=== PATIENT | male | born 1955 | race Caucasian/White ===

== ENCOUNTER 2017-02-20 13:45 | Emergency (ER) | payer OTHER ==
[~2017-02-20 13:45] MED LIST: ALLO100T PO; AMLO5TAB22 PO; ATEN-100 PO; ATOR40TA49 PO; DIOV320T PO; DORZ1SOL2 EACH EYE; FURO1TAB93 PO; LATA.005%O EACH EYE; OMEP20TA39 PO
[2017-02-20 13:49] VITALS: BP 173/89; PULSE 68; RESP 14; TEMP 98.4; O2SAT 95
--- NOTE | 2017-02-20 15:01 | RADRPT ---
EXAM DATE/TIME: 02/20/2017 14:33 [place] COMPARISON: CHEST PA & LAT, July 13, 2014, 9:56. INDICATIONS : Lower extremity edema, short of breath, denies chest pain MEDICAL HISTORY : lower extremity edema since August 2016 SURGICAL HISTORY : None. ENCOUNTER: Initial ACUITY: 4 - 6 months PAIN SCORE: 0/10 LOCATION: Bilateral chest FINDINGS: Portable AP view of the chest demonstrates a normal-sized cardiac silhouette. No effusion, consolidat ion, or pneumothorax is visualized. The bones and soft tissues demonstrate no acute abnormality. Ther e is mild atelectasis at the lung bases. CONCLUSION: No acute cardiopulmonary abnormality is identified. Nnamdi Ontiveros MD on February 20, 2017 at 14:59 Board Certified Radiologist. This report was verified electronically.
[2017-02-20 15:22] LABS: INTERNATIONAL NORMALIZED RATIO 0.9 RATIO; PROTHROMBIN TIME - PATIENT 10.4 SEC (9.8-11.6)
[2017-02-20 15:29] LABS: ANION GAP 7 MEQ/L (5-15); BICARBONATE 24.8 MEQ/L (21.0-32.0); BLOOD UREA NITROGEN 22 MG/DL (7-18); CHLORIDE 110 MEQ/L (98-107); GLOMERULAR FILTRATION RATE 53 ML/MIN (>89); MAGNESIUM 1.6 MG/DL (1.5-2.5); POTASSIUM 3.5 MEQ/L (3.5-5.1); SODIUM (NA) 142 MEQ/L (136-145)
[2017-02-20 15:36] LABS: CREATINE KINASE 88 U/L (39-308)
[2017-02-20 17:21] VITALS: BP 168/93; PULSE 67; RESP 16; O2SAT 96
[2017-02-20] MEDS ORDERED: FUROSEMIDE 40 MG/4 ML VIAL IV PUSH ONE (17:30)
[2017-02-20] MEDS ORDERED: POTASSIUM CHLORIDE 10 MEQ CONTROLLED RELEASE TAB PO ONE (17:30)
--- NOTE | 2017-02-20 17:41 | PD ---
HPI Chief Complaint: Edema Time Seen by Provider: 17:16 Travel History International Travel<30 days: No Contact w/Intl Traveler<30days: No Traveled to known affect area: No History of Present Illness HPI Patient is a 61-year-old male presenting to the emergency department for evaluation of bilateral lower extremity edema. Patient states it's been ongoing for 2 weeks. It resolved with elevation and rest by the morning. The edema returns throughout the day as patient's legs are dependent. He denies any chest pain, shortness of breath, weakness, dizziness, pain. Patient's past medical history significant for hypertension, sleep apnea, GERD, hyperlipidemia , glaucoma, gout. He is currently on Lasix 40 mg daily and he reports compliance with his medications. PFSH Past Medical History Arthritis: Yes (BILATERAL ANKLES) Asthma: No Autoimmune Disease: Yes (GOUT) Blood Disorders: No Anxiety: No Depression: No Heart Rhythm Problems: No Cancer: Yes (SKIN) Cardiovascular Problems: Yes (HTN) High Cholesterol: Yes Chest Pain: No Congestive Heart Failure: No COPD: No Diabetes: No Diminished Hearing: No Endocrine: No Gastrointestinal Disorders: Yes (GERD) GERD: Yes Glaucoma: Yes (PREGLAUCOMA) Gout: Yes Genitourinary: No Hepatitis: No Hiatal Hernia: Yes Hypertension: Yes (hx of) Immune Disorder: No Implanted Vascular Access Dvce: No Kidney Stones: Yes Musculoskeletal: Yes (ARTHRITIS) Neurologic: No Psychiatric: Yes (CLAUSTRAPHOBIA) Reproductive: No Respiratory: Yes (SLEEP APNEA) Sleep Apnea: Yes (CPAP @ HS) Thyroid Disease: No Past Surgical History AICD: No Cardiac Surgery: Yes Joint Replacement: Yes (TAIWO. HIPS) Pacemaker: No Other Surgery: Yes (buttocks abscess, hernia repair) Social History Alcohol Use: Yes Tobacco Use: No Substance Use: No Allergies-Medications (Allergen,Severity, Reaction): Coded Allergies: adhesive (Verified Allergy, Severe, skin on hands and forearm tears easily , 02/20/17) vancomycin (Verified Allergy, Severe, Rash, 02/20/17) STATES PATIENT DEVELOPED RASH AND EXPERIENCED KIDNEY FAILURE. Reported Meds & Prescriptions Reported Meds & Active Scripts Active Reported Catapres (Clonidine) 0.1 Mg Tab 0.1 Mg PO BID Xalatan Opth Drops (Latanoprost) 0.005% Drops 1 Drop EACH EYE HS Cosopt Opth Drops (Dorzolamide-Timolol Opth Drops) 22.3-6.8 Mg/Ml Soln 1 Drop EACH EYE BID Viagra (Sildenafil Citrate) 100 Mg Tab 100 Mg PO DAILY PRN Tenormin (Atenolol) 25 Mg Tab 25 Mg PO BID Norvasc (Amlodipine Besylate) 5 Mg Tab 5 Mg PO DAILY Allopurinol 100 Mg Tab 100 Mg PO DAILY Lipitor (Atorvastatin Calcium) 40 Mg Tab 40 Mg PO HS Diovan (Valsartan) 320 Mg Tab 320 Mg PO DAILY Omeprazole 40 Mg Cap 40 Mg PO DAILY Review of Systems Except as stated in HPI: all other systems reviewed are Neg General / Constitutional: No: Fever Eyes: No: Blurred Vision HENT: No: Headaches Cardiovascular: Positive: Edema, No: Chest Pain or Discomfort, Diaphoresis, Dyspnea on exertion Respiratory: No: Shortness of Breath Gastrointestinal: No: Nausea, Vomiting, Abdominal Pain Musculoskeletal: Positive: Edema, No: Myalgias, Pain Skin: No Change in Pigmentation Physical Exam Narrative GENERAL: Obese, well-developed, alert male. Resting comfortably in no acute distress. SKIN: Warm and dry. HEAD: Atraumatic. Normocephalic. EYES: Pupils equal and round. No scleral icterus. No injection or drainage. ENT: No nasal bleeding or discharge. Mucous membranes pink and moist. NECK: Trachea midline. No JVD. CARDIOVASCULAR: Regular rate and rhythm. 3+ pitting edema to bilateral lower extremities. 2+ dorsalis pedal pulses bilaterally. Brisk less than 3 second capillary refill. RESPIRATORY: No accessory muscle use. Clear to auscultation. Breath sounds equal bilaterally. GASTROINTESTINAL: Abdomen soft, non-tender, nondistended. Hepatic and splenic margins not palpable. MUSCULOSKELETAL: Extremities without clubbing, cyanosis. No obvious deformities. NEUROLOGICAL: Awake and alert. No obvious cranial nerve deficits. Motor grossly within normal limits. Five out of 5 muscle strength in the arms and legs. Normal speech. PSYCHIATRIC: Appropriate mood and affect; insight and judgment normal. Data Data Last Documented VS Vital Signs Date Time Temp Pulse Resp B/P (MAP) Pulse Ox O2 Delivery O2 Flow Rate FiO2 02/20/17 17:21 71 16 95 Room Air 02/20/17 17:21 168/93 (118) 02/20/17 13:49 98.4 Orders Orders Electrocardiogram (02/20/17 14:19) Basic Metabolic Panel (Bmp) (02/20/17 14:19) B-Type Natriuretic Peptide (02/20/17 14:19) Ckmb (Isoenzyme) Profile (02/20/17 14:19) Complete Blood Count With Diff (02/20/17 14:19) Magnesium (Mg) (02/20/17 14:19) Prothrombin Time / Inr (Pt) (02/20/17 14:19) Act Partial Throm Time (Ptt) (02/20/17 14:19) Troponin I (02/20/17 14:19) Chest, Pa & Lat (02/20/17 14:19) Furosemide Inj (Lasix Inj) (02/20/17 17:30) Potassium Chloride (Kcl) (02/20/17 17:30) Labs Laboratory Tests Test 02/20/17 14:50 02/20/17 17:20 Prothrombin Time 10.4 SEC Prothromb Time International Ratio 0.9 RATIO Activated Partial Thromboplast Time 28.0 SEC Blood Urea Nitrogen 22 MG/DL Creatinine 1.36 MG/DL Random Glucose 102 MG/DL Calcium Level 9.2 MG/DL Magnesium Level 1.6 MG/DL Sodium Level 142 MEQ/L Potassium Level 3.5 MEQ/L Chloride Level 110 MEQ/L Carbon Dioxide Level 24.8 MEQ/L Anion Gap 7 MEQ/L Estimat Glomerular Filtration Rate 53 ML/MIN Total Creatine Kinase 88 U/L Troponin I LESS THAN 0.02 NG/ML B-Type Natriuretic Peptide 193 PG/ML White Blood Count 8.0 TH/MM3 Red Blood Count 4.29 MIL/MM3 Hemoglobin 12.8 GM/DL Hematocrit 38.7 % Mean Corpuscular Volume 90.0 FL Mean Corpuscular Hemoglobin 29.8 PG Mean Corpuscular Hemoglobin Concent 33.1 % Red Cell Distribution Width 14.5 % Platelet Count 268 TH/MM3 Mean Platelet Volume 8.1 FL Neutrophils (%) (Auto) 54.8 % Lymphocytes (%) (Auto) 29.3 % Monocytes (%) (Auto) 10.2 % Eosinophils (%) (Auto) 4.4 % Basophils (%) (Auto) 1.3 % Neutrophils # (Auto) 4.4 TH/MM3 Lymphocytes # (Auto) 2.3 TH/MM3 Monocytes # (Auto) 0.8 TH/MM3 Eosinophils # (Auto) 0.4 TH/MM3 Basophils # (Auto) 0.1 TH/MM3 CBC Comment DIFF FINAL Differential Comment MDM Medical Decision Making Medical Screen Exam Complete: Yes Emergency Medical Condition: Yes Interpretation(s) Last Impressions Chest X-Ray 02/20/17 1419 Signed Impressions: Service Date/Time: Monday, February 20, 2017 14:33 - CONCLUSION: No acute cardiopulmonary abnormality is identified. Nnamdi Ontiveros MD Laboratory Tests Test 02/20/17 14:50 02/20/17 17:20 Prothrombin Time 10.4 SEC Prothromb Time International Ratio 0.9 RATIO Activated Partial Thromboplast Time 28.0 SEC Blood Urea Nitrogen 22 MG/DL Creatinine 1.36 MG/DL Random Glucose 102 MG/DL Calcium Level 9.2 MG/DL Magnesium Level 1.6 MG/DL Sodium Level 142 MEQ/L Potassium Level 3.5 MEQ/L Chloride Level 110 MEQ/L Carbon Dioxide Level 24.8 MEQ/L Anion Gap 7 MEQ/L Estimat Glomerular Filtration Rate 53 ML/MIN Total Creatine Kinase 88 U/L Troponin I LESS THAN 0.02 NG/ML B-Type Natriuretic Peptide 193 PG/ML White Blood Count 8.0 TH/MM3 Red Blood Count 4.29 MIL/MM3 Hemoglobin 12.8 GM/DL Hematocrit 38.7 % Mean Corpuscular Volume 90.0 FL Mean Corpuscular Hemoglobin 29.8 PG Mean Corpuscular Hemoglobin Concent 33.1 % Red Cell Distribution Width 14.5 % Platelet Count 268 TH/MM3 Mean Platelet Volume 8.1 FL Neutrophils (%) (Auto) 54.8 % Lymphocytes (%) (Auto) 29.3 % Monocytes (%) (Auto) 10.2 % Eosinophils (%) (Auto) 4.4 % Basophils (%) (Auto) 1.3 % Neutrophils # (Auto) 4.4 TH/MM3 Lymphocytes # (Auto) 2.3 TH/MM3 Monocytes # (Auto) 0.8 TH/MM3 Eosinophils # (Auto) 0.4 TH/MM3 Basophils # (Auto) 0.1 TH/MM3 CBC Comment DIFF FINAL Differential Comment Vital Signs Date Time Temp Pulse Resp B/P (MAP) Pulse Ox O2 Delivery O2 Flow Rate FiO2 02/20/17 17:21 71 16 95 Room Air 02/20/17 17:21 67 16 168/93 (118) 96 Room Air 02/20/17 13:49 98.4 68 14 173/89 (367) 82 Differential Diagnosis CHF versus dependent edema versus metabolic abnormality versus less likely DVT versus other Narrative Course Patient is a 61-year-old male that presented to the emergency department for evaluation of bilateral lower extremity edema that has been ongoing for 2 weeks. Edema is relieved, resolved with elevation and rest. Negative Homans sign bilaterally. Patient has no complaints of pain, no shortness of breath or chest pain. Patient was protocoled in triage, IV access established the patient placed on groundwater monitoring technician. EKG shows normal sinus rhythm, nonspecific T-wave abnormality. Rate of 66. CBC reviewed, no acute findings identified. BNP 193 BUN and creatinine 22/1.36 Troponin is negative Chest x-ray was read by radiologist shows no acute disease. Lasix 40 mg IV 1 dose ordered and given. KCl 30 mEq ordered. Exam and presentation do not appear consistent with DVTs. Edema is likely related to a mild CHF. Patient eats a lot of fast food during the week despite and sodium. He appears to have a rather sedentary lifestyle, his legs are likely in the dependent position throughout the day. Patient was encouraged to rest with his legs elevated above the level of his heart. He was advised that he may obtain compression stockings at [facility] or [facility] to help with the edema. He was advised to follow-up with his primary doctor for possible adjustment of his Lasix dose. Patient was advised to return to emergency department immediately for any new or worsening symptoms. Patient and significant other verbalized understanding of these instructions. Patient is stable for discharge. Diagnosis Primary Impression: Elevated brain natriuretic peptide (BNP) level Additional Impression: Peripheral edema Referrals: Primary Care Physician 1 day Patient Instructions: 2 Gram Sodium Diet (DC), General Instructions, Leg Edema (ED) Additional Instructions: Follow-up with your primary doctor in 1-2 days for reevaluation Rest with legs elevated above the level of the heart Obtain compression stockings from your local pharmacy and wear daily to help reduce swelling Maintain a low-salt diet, avoid processed, canned foods Continue home medications previously prescribed Return to emergency department for any new or worsening symptoms Med/Other Pt SpecificInfo: Prescription(s) given Scripts Potassium Chloride ER (Potassium Chloride ER) 20 Meq Tab 10 MEQ PO DAILY for Electrolyte Replacement, #3 TAB 0 Refills Prov: Laney West 02/20/17 Furosemide (Lasix) 40 Mg Tab 40 MG PO in the evening for 3 Days, #3 TAB 0 Refills Prov: Laney West 02/20/17 Disposition: 01 DISCHARGE HOME Condition: Stable Laney West Feb 20, 2017 17:41
[2017-02-20 17:43] LABS: AUTOMATED NEUTROPHIL # 4.4 TH/MM3 (1.8-7.7); BASOPHIL # 0.1 TH/MM3 (0-0.2); BASOPHIL % 1.3 % (0.0-2.0); EOSINOPHIL # 0.4 TH/MM3 (0-0.4); EOSINOPHIL % 4.4 % (0.0-4.0); HEMATOCRIT 38.7 % (39.0-51.0); HEMO FLAGS DIFF FINAL; LYMPH % 29.3 % (9.0-44.0); LYMPHOCYTE # 2.3 TH/MM3 (1.0-4.8); MEAN CORPUSCULAR HEMOGLOBIN 29.8 PG (27.0-34.0); MEAN CORPUSCULAR HGB CONC 33.1 % (32.0-36.0); MONO % 10.2 % (0.0-8.0); NEUT % 54.8 % (16.0-70.0); PLATELET COUNT 268 TH/MM3 (150-450); RED BLOOD COUNT 4.29 MIL/MM3 (4.50-5.90); RED CELL DISTRIBUTION WIDTH 14.5 % (11.6-17.2)
[2017-02-20] MEDS ORDERED: OMEP40CA2 PO (17:43)
[2017-02-20] MEDS ORDERED: FURO1TAB60 PO ×2 (17:43→19:30)
[2017-02-20] MEDS ORDERED: LATA.005%O EACH EYE (17:43)
[2017-02-20] MEDS ORDERED: VIAG100T PO (17:43)
[2017-02-20] MEDS ORDERED: DIOV320T PO (17:43)
[2017-02-20] MEDS ORDERED: ALLO100T PO (17:43)
[2017-02-20] MEDS ORDERED: AMLO5 PO (17:43)
[2017-02-20] MEDS ORDERED: DORZ2SOL7 EACH EYE (17:43)
[2017-02-20] MEDS ORDERED: CLON.1 PO (17:43)
[2017-02-20] MEDS ORDERED: LIPI40TA PO (17:43)
[2017-02-20] MEDS ORDERED: ATEN1TAB73 PO (17:43)
[2017-02-20] MEDS ORDERED: POTA-163 PO (19:30)
--- NOTE | 2017-02-20 21:35 | EKG ---
Date Performed: 02/20/2017 Time Performed: 14:56:58 PTAGE: 61 years EKG: Sinus rhythm NONSPECIFIC ST-T CHANGES BORDERLINE ECG Compared to the PREVIOUS TRACING ST-T changes present DOCTOR: Berto Bergman Interpretating Date/Time 02/20/2017 21:35:27
== END 2017-02-20 20:03 | disposition home or self-care (01) ==
LOC: NEPE 13:45
DX: R60.9 Edema, unspecified (principal); I10 Essential (primary) hypertension; K21.9 Gastro-esophageal reflux disease without esophagitis; E78.5 Hyperlipidemia, unspecified; M10.9 Gout, unspecified; M19.072 Primary osteoarthritis, left ankle and foot; M19.071 Primary osteoarthritis, right ankle and foot; E78.00 Pure hypercholesterolemia, unspecified; Z87.442 Personal history of urinary calculi
CPT/HCPCS: 71020; 80048; 82550; 83735; 83880; 84484; 85025; 85610; 85730; 93005; 96374; 99285; J1940